=== PATIENT | female | born 1980 | race Caucasian/White ===

== ENCOUNTER 2024-09-03 14:19 | Emergency (ER) | payer MEDICAID, SELFPAY ==
[2024-09-03 14:29] VITALS: BP 137/83; PULSE 80; RESP 18; TEMP 36.9; O2SAT 97; BMI 30.5
[2024-09-03 14:52] LABS: Microscopic, Urine URINE MICROSCOPIC (MICROSCOPIC)
[2024-09-03 14:53] LABS: Basophils # 0.1 K/mm3 (0-0.2); Basophils % 0.6 % (0.1-2.0); Eosinophils # 0.2 K/mm3 (0.0-0.4); Eosinophils % 1.9 % (0.1-12.0); Hematocrit 39.8 % (37.0-47.0); Hemoglobin 13.2 g/dL (12.2-16.2); Lymphocytes # 1.6 K/mm3 (0.7-4.5); Lymphocytes % 17.9 % (10-50); Mean Corpuscular HGB Conc 33.2 g/dL (31.8-35.4); Mean Corpuscular Hemoglobin 29.3 pg (27.0-31.2); Mean Corpuscular Volume 88.4 fl (81-99); Mean Platelet Volume 12.8 fl (7.4-10.4); Monocytes # 0.6 K/mm3 (0.1-1.0); Monocytes % 6.1 % (1.7-9.3); Neutrophils # 6.6 K/mm3 (1.8-7.8); Neutrophils % 73.3 % (37.0-80.0); Platelet Count 198 K/mm3 (142-424); Red Cell Distribution Width 13.2 % (11.5-17.5)
[2024-09-03 14:56] LABS: Urine Pregnancy, HCG Qual. Negative (Negative)
[2024-09-03 14:59] LABS: Appearance,Urine CLEAR (Clear); Bilirubin,Urine Negative (Negative); Blood, Urine Negative (Negative); Color,Urine YELLOW (Yellow); Glucose,Urine (UA) Negative (Negative); Ketones,Urine Negative (Negative); Leukocyte Esterase,Urine Negative (Negative); Nitrate,Urine Negative (Negative); PH,Urine 6.5 (5.0-8.5); Protein,Urine Negative (Negative); Specific Gravity, Urine 1.025 (1.005-1.030); Urobilinogen,Urine 0.2 EU/dl (0.2)
[2024-09-03 15:15] LABS: Alanine Aminotransferase 25 U/L (12-78); Albumin Level 4.6 g/dl (3.5-5.0); Albumin/Globulin Ratio 1.5 (1.1-1.8); Alkaline Phosphatase 87 U/L (38-126); Anion Gap 12.2 mEq/L (5-15); Aspartate Amino Transferase 32 U/L (14-36); Bilirubin,Total 0.3 mg/dl (0.2-1.3); Blood Urea Nitrogen 21 mg/dl (7-17); Calcium 8.7 mg/dl (8.4-10.2); Carbon Dioxide 25 mmol/L (22.0-30.0); Chloride 107 mmol/L (98-107); Creatinine Clearance Estimated 87 mL/min (50-200); Estimated Glomerular Filt Rate 61 ml/min (>60); GFR (African American) 73 ML/MIN (>60); Glucose 98 mg/dl (74-100); Lipase 51 U/L (23-300); Potassium 4.2 mmoL/L (3.5-5.1); Sodium 140 mmol/L (136-145); Total Protein,Serum 7.6 g/dl (6.3-8.2)
[2024-09-03 15:37] LABS: Bacteria,Urine Trace /lpf; Mucus,Urine Trace /lpf; WBC,Urine Occasional #/hpf (0-3)
[2024-09-03 15:54] VITALS: BP 124/81; PULSE 78; RESP 16; O2SAT 100
--- NOTE | 2024-09-03 15:56 | PC.NURSE ---
Patient reassessed in triage. Continues to endorse abdominal pain to the LLQ. Patient denies any new or exacerbating symptoms since initial triage. Ambulates with smooth steady gait. Friend remains at side. Voices no questions or concerns at this time.
--- NOTE | 2024-09-03 16:36 | PC.NURSE ---
PT AMBULATORY TO ROOM 10 AT THIS TIME, CALL LIGHT WITHIN REACH. FAMILY AT BEDSIDE
--- NOTE | 2024-09-03 16:38 | PC.NURSE ---
DR ORTIZ AT BEDSIDE FOR EVALUATION
--- NOTE | 2024-09-03 16:41 | CT_ITS ---
PROCEDURE INFORMATION: Exam: CT Abdomen And Pelvis With Contrast Exam date and time: 09/03/2024 4:52 PM Age: 44 years old Clinical indication: Pain; Other: Llq; Additional info: Llq pain TECHNIQUE: Imaging protocol: Computed tomography of the abdomen and pelvis with contrast. Radiation optimization: All CT scans at this facility use at least one of these dose optimization techniques: automated exposure control; mA and/or kV adjustment per patient size (includes targeted exams where dose is matched to clinical indication); or iterative reconstruction. Contrast material: ISOVUE; Contrast volume: 75 ml; Contrast route: IV; COMPARISON: No relevant prior studies available. FINDINGS: Lungs: Lung bases are clear. Liver: Normal. No mass. Gallbladder and biliary ducts: Gallbladder contracted which limits assessment but otherwise unremarkable. No evident bile duct dilatation. Pancreas: Normal. No ductal dilation. Spleen: Normal. No splenomegaly. Adrenal glands: Normal. No mass. Kidneys and ureters: Subcentimeter low-density lesion in the anterior mid right kidney too small to characterize but likely a cyst. No follow-up advised. Kidneys and ureters otherwise unremarkable with no obstructing stones or uropathy. Stomach and bowel: Unremarkable. No obstruction. No mucosal thickening. Appendix: No evidence of appendicitis. Intraperitoneal space: Unremarkable. No free air. No significant fluid collection. Vasculature: Unremarkable. No abdominal aortic aneurysm. Lymph nodes: Unremarkable. No enlarged lymph nodes. Urinary bladder: Unremarkable as visualized. Reproductive: A 2 cm cyst noted in the left ovary likely physiologic. No follow-up advised. Bones/joints: Unremarkable. No acute fracture. Soft tissues: Unremarkable. IMPRESSION: No acute abnormalities of the abdomen and pelvis. Nonemergent findings as above. COMMENTS: Consistent with the [employer]'s Incidental Findings Committee white paper (J Am Johnny Radiol 2018): Any incidental renal lesion less than 1 cm or classified as too small to characterize, or any incidental cystic renal lesion characterized as simple-appearing, is likely benign. No follow-up imaging is recommended for these lesions per consensus recommendations based on imaging criteria.
--- NOTE | 2024-09-03 16:41 | US_ITS ---
PROCEDURE INFORMATION: Exam: US Duplex Artery or Vein of the Abdominal and/or Reproductive Organs, Limited Ovaries Exam date and time: 09/03/2024 4:59 PM Age: 44 years old Clinical indication: Pelvic pain; Additional info: Llq pain, R/O torsion TECHNIQUE: Imaging protocol: Real-time duplex ultrasound scan of the arterial or venous flow with jama scale, color Doppler flow and spectral waveform analysis with image documentation. Limited duplex exam focused on the ovaries. Duplex exam was performed to evaluate for torsion and other vascular conditions. COMPARISON: CT ABDOMEN PELVIS W CON 09/03/2024 4:52 PM FINDINGS: Right ovary/adnexa: Normal arterial or venous Doppler waveforms in the ovary. No ovarian torsion. Left ovary/adnexa: Normal arterial or venous Doppler waveforms in the ovary. No ovarian torsion. IMPRESSION: Normal ovarian arterial and venous vascular flow. No evidence ovarian torsion. PROCEDURE INFORMATION: Exam: US Pelvis, Transvaginal, Non-Obstetric Exam date and time: 09/03/2024 4:59 PM Age: 44 years old Clinical indication: Pelvic pain; Additional info: Llq pain, R/O torsion TECHNIQUE: Imaging protocol: Real-time transvaginal pelvic (non-obstetric) ultrasound with image documentation. Transvaginal imaging was used for better evaluation of the endometrium, adnexa, and/or cervix. COMPARISON: CT ABDOMEN PELVIS W CON 09/03/2024 4:52 PM FINDINGS: Uterus: Uterus is normal. Endometrial stripe is normal. Uterus measures 9.4 x 4.8 x 5.5 cm. Endometrial stripe measures 1.3 cm. Right ovary/adnexa: Normal. No mass. Normal ovarian blood flow on color Doppler. Right ovary measures 2.6 x 1.9 x 1.6 cm. Right ovary difficult to visualize. Left ovary/adnexa: Normal. No mass. Normal ovarian blood flow on color Doppler. Left ovary measures 3.2 x 2.2 x 2.2 cm and contains a 2 cm simple appearing cyst compatible with dominant follicle. Urinary bladder: Urinary bladder is limited. Intraperitoneal space: No free fluid. IMPRESSION: No acute findings.
--- NOTE | 2024-09-03 16:44 | HMH.EDGENADL ---
Discharge Plan Disposition Patient Disposition: Home, Self-Care Condition: Good Prescriptions Prescriptions: No Action No Known Home Medications Referrals Follow up/Referrals: Nevin Thompson DO [Staff Physician] - See instructions Rommel Wilson MD [Staff Physician] - See instructions Pat Amaya DO [Staff Physician] - See instructions Provider,MD Sonia [Primary Care Provider] - See instructions Activity Restrictions/Add. Instructions Additional Instructions/Restrictions: You were evaluated in the emergency department today. Please follow-up outpatient with gynecology. Take Tylenol and ibuprofen every 4-6 hours as needed for pain. Return to the emergency department for new or worsening symptoms. Clinical Impressions Clinical Impression: Cyst of left ovary Stand Alone Forms Stand Alone Forms: Work/School Release Instructions Patient Instructions: DI for Ovarian Cyst, DI for Acute Abdominal Pain Print Language Print Language: [place] Discharge ED Provider: Delmi Guthrie General Adult HPI General Chief complaint: Abdominal Pain Stated complaint: Lower abd Pain Time Seen by Provider: 09/03/24 16:37 Mode of Arrival: Ambulatory Source of Information: Patient Limitations: No Limitations Description of Symptoms (Recalled from ER Triage Doc. by RN): Patient presents with abdominal pain. Started last night. Patient pinpoints pain to left lower quadrant. States she has been consistently having bowel movements daily. States, I thought I was starting my period. I put a tampon in and then when I got home I changed it and there was nothing on it. Patient states she retains all female reproductive organs. Denies any gynecological history. Denies vomiting. Endorses intermittent nausea. Denies any urinary symptoms. Denies blood in urine and stool. History of Present Illness HPI narrative: This patient is a 44-year-old female who reports a history of pelvic pain issues related to a prior tubal, at which point she states that her tubes were left too long. She states that she started having pain last night in her left lower quadrant that is localized there with no radiation. She notes that she thought she was going to start her period, so she put in a tampon but it came out dry. She denies any fevers, nausea, vomiting, changes bowel movement such as diarrhea, constipation, melena, hematochezia. No urinary symptoms. She states nothing makes the pain better or worse. No other acute concerns noted at this time. Related Data Home Medications ?Medication ?Instructions ?Recorded ?Confirmed No Known Home Medications 09/03/24 09/03/24 Allergies Allergy/AdvReac Type Severity Reaction Status Date / Time gabapentin Allergy Intermediate Rash Verified 09/03/24 14:35 hydrocodone AdvReac Intermediate Vomiting Verified 09/03/24 14:35 PFSH [facility] Disclaimer: The information contained in this section may have been updated after the patient was seen, as this information can be updated by other users. Social History Smoking Status: Never smoker alcohol intake: never current occupational status: employed Travel in the last 8 weeks: None ROS Obtained: Yes All systems reviewed & no additional complaints except as documented Physical Exam General General appearance: alert and in no apparent distress Head Head exam: atraumatic and normocephalic Eye Eye exam: Present normal appearance, PERRL and EOMI ENT ENT exam: Present normal exam, normal oropharynx, mucous membranes moist and normal external ear exam Neck Neck exam: Present normal inspection, full ROM and trachea midline; Absent tenderness Chest Chest inspection: Present normal inspection and symmetric chest wall rise; Absent tenderness Respiratory Respiratory exam: Present normal lung sounds bilaterally; Absent respiratory distress, wheezes, stridor or accessory muscle use Cardiovascular Cardiovascular exam: Present regular rate and normal rhythm Abdominal Exam Abdominal exam: Present soft and tenderness (LLQ); Absent distention, guarding, rebound or rigidity Extremities Exam Extremities exam: Present normal inspection, full ROM and normal capillary refill; Absent tenderness or edema Back Exam Back exam: Present normal inspection and full ROM; Absent tenderness Neurological Exam Neurological exam: Present alert, oriented X3, CN II-XII intact and normal gait; Absent motor sensory deficit Psychiatric Psychiatric exam: Present normal affect and normal mood Skin Skin exam: Present warm and dry Medical Decision Making Medical Records Medical records reviewed: Yes I reviewed the patient's medical records. Screening: Per USPSTF and CDC recommendations, given the prevalence of disease in our region, it is our hospital?s policy to screen for HIV and viral Hepatitis for all patients aged 18 and over and those with ongoing risk factors. Elliot Inquiry Pt receiving controlled substance: No Vital Signs: 09/03/24 14:29 09/03/24 15:54 09/03/24 18:09 Temperature 98.5 F 98.5 F Temperature Source Oral Oral Pulse Rate 78 78 Pulse Rate [Radial] 80 Respiratory Rate 18 16 16 Blood Pressure 124/81 124/81 Blood Pressure [Right Arm] 137/83 Blood Pressure Mean [Right Arm] 101 Blood Pressure Source Automatic Cuff Blood Pressure Source [Right Arm] Automatic Cuff Blood Pressure Position Sitting Blood Pressure Position [Right Arm] Sitting 02 Sat by Pulse Oximetry 97 100 Oxygen Delivery Method Room Air Room Air Room Air Lab Data Lab results reviewed: Yes I reviewed the patient's lab results. Lab Results 09/03/24 14:45: WBC 9.0, RBC 4.50, Hgb 13.2, Hct 39.8, MCV 88.4, MCH 29.3, MCHC 33.2, RDW 13.2, Plt Count 198, MPV 12.8 H, Neut % (Auto) 73.3, Lymph % (Auto) 17.9, [place] % (Auto) 6.1, Eos % (Auto) 1.9, Baso % (Auto) 0.6, Neut # (Auto) 6.6, Lymph # (Auto) 1.6, [place] # (Auto) 0.6, Eos # (Auto) 0.2, Baso # (Auto) 0.1, Sodium 140, Potassium 4.2, Chloride 107, Carbon Dioxide 25, Anion Gap 12.2, BUN 21 H, Creatinine 1.00, Estimated Creat Clear 87, Estimated GFR 61, Est GFR ( Amer) 73, Glucose 98, Calcium 8.7, Total Bilirubin 0.3, AST 32, ALT 25, Alkaline Phosphatase 87, Total Protein 7.6, Albumin 4.6, Globulin 3.0, Albumin/Globulin Ratio 1.5, Lipase 51, Urine Color Yellow, Urine Appearance Clear, Urine pH 6.5, Ur Specific [place] 1.025, Urine Protein Negative, Urine Glucose (UA) Negative, Urine Ketones Negative, Urine Blood Negative, Urine Nitrate Negative, Urine Bilirubin Negative, Urine Urobilinogen 0.2, Ur Leukocyte Esterase Negative, Urine RBC None, Urine WBC Occasional, Ur Squamous Epith Cells 3-5, Urine Bacteria Trace, Urine Mucus Trace, Urine HCG, Qual Negative 09/03/24 14:45 09/03/24 14:45 Orders (Tests/Meds): ED MEDICATIONS Discontinued Medications Generic Name Dose Route Start Last Admin Trade Name Freq PRN Reason Stop Dose Admin Acetaminophen 1,000 mg 09/03/24 16:41 09/03/24 16:50 Acetaminophen 500mg Tab PO 09/03/24 16:42 1,000 mg ONCE ONE Administration Iopamidol 75 ml 09/03/24 16:57 09/03/24 16:58 Iopamidol-370 (76%);100ml Bottle IV 09/03/24 16:58 75 ml ONCE ONE Administration Ketorolac Tromethamine 15 mg 09/03/24 16:41 09/03/24 16:50 Ketorolac 30mg/Ml Vial IV 09/03/24 16:42 15 mg ONCE ONE Administration Morphine Sulfate 4 mg 09/03/24 16:41 09/03/24 17:17 Morphine 4mg/Ml Syringe IV 09/03/24 16:42 Not Given ONCE ONE Ondansetron HCl 4 mg 09/03/24 16:41 09/03/24 16:50 Ondansetron 4mg/2ml Vial IV 09/03/24 16:42 4 mg ONCE ONE Administration Sodium Chloride 10 ml 09/03/24 16:57 09/03/24 16:58 Sodium Chloride 0.9% 10ml Syr (Rad Only) IV 09/03/24 16:58 10 ml ONCE ONE Administration ORDERS Category Date Time Status CT abdomen pelvis w con Stat Cat Scan 09/03/24 16:41 Completed US transvaginal Stat Exams 09/03/24 16:41 Completed Complete Blood Count Auto Diff Stat Lab 09/03/24 14:45 Completed Comprehensive Metabolic Panel Stat Lab 09/03/24 14:45 Completed Lipase Stat Lab 09/03/24 14:45 Completed Urinalysis and Microscopic Stat Lab 09/03/24 14:45 Completed Urine , HCG Qual. Stat Lab 09/03/24 14:45 Completed Medical Decision Narrative: In summary, this patient is a 44-year-old female presenting to the Emergency Department for evaluation of left lower quadrant quadrant abdominal pain. Differential diagnoses considered include but are not limited to variances, ovarian torsion, colitis, diverticulitis, ureterolithiasis, cystitis, pyelonephritis. Ruling out the most morbid conditions drove assessment. On exam, the patient is lying in bed in no acute distress, but she does have left lower quadrant tenderness to palpation. No rebound or guarding. No changes in bowel movements or urinary symptoms. Vitals reassuring on cardiac telemetry. Workup included CBC, CMP, lipase, urinalysis, test, CT abdomen and pelvis with IV contrast, transvaginal ultrasound to look for ovarian cysts. Patient was given IV morphine, Zofran, Toradol, oral Tylenol for symptomatic improvement. I independently interpreted CT scan and ultrasound prior to the radiologist read and noted left-sided ovarian cyst without concerns for torsion, as the patient has good blood flow and states is only measuring around 2 cm. Please see their read for final interpretation. Labs were obtained that demonstrated reassuring CBC with no significant leukocytosis, reassuring chemistry, urine is not concerning for infection On reassessment, patient had good improvement after administration of interventions above. I feel that she has pain likely related to ovarian cyst, but no concerns for torsion based on exam and workup. Symptoms have significantly improved, so I feel she is appropriate discharge home with instructions for close follow-up with gynecology. Strict return precautions were given to the patient was discharged after all questions were answered Critical Care Critical Care Time Critical Care Time: No
[2024-09-03] MEDS: KETOROLAC 30MG/ML VIAL 15 MG IV (16:50)
[2024-09-03] MEDS: ONDANSETRON 4MG/2ML VIAL 4 MG IV (16:50)
[2024-09-03] MEDS: ACETAMINOPHEN 500MG TAB 1000 MG PO (16:50)
[2024-09-03] MEDS: SODIUM CHLORIDE 0.9% 10ML SYR (RAD ONLY) 10 ML IV (16:58)
[2024-09-03] MEDS: IOPAMIDOL-370 (76%);100ML BOTTLE 75 ML IV (16:58)
--- NOTE | 2024-09-03 17:08 | PC.NURSE ---
PT TO US
--- NOTE | 2024-09-03 17:29 | PC.NURSE ---
PT RETURNED TO ROOM FROM RADIOLOGY
[2024-09-03 18:09] VITALS: BP 124/81; PULSE 78; RESP 16; TEMP 36.9; O2SAT 100
== END 2024-09-03 18:10 | disposition home or self-care (01) ==
PROVIDERS: Emergency Provider Emergency Medicine
DX: N83.202 Unspecified ovarian cyst, left side (principal); R10.32 Left lower quadrant pain
CPT/HCPCS: 74177; 76830; 80053; 81001; 81025; 83690; 85025; 96374; 96375; 99285; J1885; J2270; J2405; Q9967

== ENCOUNTER 2024-11-27 10:47 | Outpatient (CLI) | payer MEDICAID, SELFPAY ==
[2024-11-27 12:01] LABS: Chol/HDL Ratio 3.6 (1-3.5); Cholesterol 214 mg/dl (140-200); HDL Cholesterol 60 mg/dl (40-60); Triglycerides 111 mg/dl (30-150); VLDL Cholesterol 22 mg/dL (0-40)
[2024-11-27 12:12] LABS: Direct LDL Cholesterol 111.91 mg/dL (100-129)
[2024-11-27 12:41] LABS: HIV Combo NEGATIVE (Negative)
[2024-11-27 12:50] LABS: Hepatitis C Ab Qual. W/ RFX NEGATIVE (Negative)
== END 2024-11-27 23:59 | disposition home or self-care (01) ==
LOC: LAB 10:48
PROVIDERS: PCP Internal Medicine; Visit Provider Internal Medicine
DX: Z11.4 Encounter for screening for human immunodeficiency virus [HIV] (principal); Z13.220 Encounter for screening for lipoid disorders; Z11.59 Encounter for screening for other viral diseases; Z13.1 Encounter for screening for diabetes mellitus
CPT/HCPCS: 36415; 80061; 83036; 86803; 87389

== ENCOUNTER 2025-01-11 11:27 | Outpatient (CLI) | payer MEDICAID, SELFPAY ==
--- OUTSIDE RECORDS SUMMARY | 2025-01-11 11:30 | XMS_ITS | Clinical Summary ---
Author Organization [employer] [facility] Address [address] [place] [id number] Phone Care Team Providers Care Master Machinist Name Role Phone Demetrio Donaldson MD Primary Care Physician [phone] Conditions or Problems Problem Name Problem Code Onset Date Status Entry Date Provider Comment Standard Description Annotate Hot flashes 899244870 (SNOMED CT) Active Anjum Blair MD Menopausal flushing Vitamin B12 deficiency 355830505 (SNOMED CT) Active Anjum Blair MD Cobalamin deficiency Body aches 98341826 (SNOMED CT) Active Anjum Blair MD Generalized aches and pains Fatigue 34655374 (SNOMED CT) Active Anjum Blair MD Fatigue Medications Medication Instructions Start Date Stop Date Generic Name [facility] Provider VITAMIN B-12 1000 MCG TABS TAKE 1 TABLET BY MOUTH ONCE A DAY 9 CYANOCOBALAMIN [id number] Anjum Blair MD Medications Administered No information available. Allergies, Adverse Reactions, Alerts Observed no known allergies at Results Date Name Value Unit Range Flag Description Lab Report: COMPREHENSIVE ME TABOLIC PANEL, CBC (INCLUDES DIFF/PLT), SKY ... TSH 2.34 u[iU]/m L N Thyrotropin [Units/volume] in Serum or Plasma B12 321 pg/mL 200-1100 N Cobalamin (V itamin B12) [Mass/volume] in Serum or Plasma HEP C AB NON-REACTIVE NON-REACTI N Hepa titis C virus Ab [Presence] in Serum RA FACTOR 6 [iU]/mL <14 N Rheumatoid factor [Units/volume] in Serum or Plasma SKY HOMO PAT NEGATIVE NEGATIVE N SKY (a ntinuclear antibody) pattern, homogeneous BASO % MANU 0.3 % N basophils as percent of blood leukocytes, manual count EOS % MANU 3.2 % N eosinophil s as percent of blood leukocytes, manual count MONOCYTE % 4.8 % N Monocytes/ 100 leukocytes in Blood by Automated count LYMPH% P BLD 21.2 % N lymphocy katarina as percent of blood leukocytes PMN % 70.5 % N Neutrophils/1 00 leukocytes in Blood by Automated count ABS BASOS 16 {Cells} /uL 0-200 N Basophils [#/volume] in Blood ABS EOS 170 {Cells} /uL 15-500 N Eosinophils [#/volume] in Blood ABS MONOS 254 {Cells} /uL 200-950 N Monocytes [#/volume] in Blood ABSLYMPHCT 1124 {Cells} /uL 850-3900 N Lymphocytes [#/volume] in Blood ABS NEUTROPH 3737 CELLS/UL 10*3/uL 6570-1754 N Neutrophils [#/volume] in Blood MPV 10.8 fL 7.5-11.5 N Platelet gabriele n volume [Entitic volume] in Blood by [place] PLATELETK/UL 153 THOUSAND/UL 10*3/uL 140-400 N platelet count RDW 14.4 % 11.0-15.0 N Erythrocyte distribution width [Ratio] by Automated count OL-MCHC 32.4 g/dL 32.0-36.0 N mean corpus cular hemoglobin concentration, rbc MCH 28.9 pg 27.0-33.0 N MCH [Entiti c mass] by Automated count MCV 89.1 fL 80.0-100.0 N MCV [Entit ic volume] by Automated count HCT 40.5 % 35.0-45.0 N Hematocrit [Volume Fraction] of Blood by Automated count HGB 13.1 g/dL 11.7-15.5 N Hemoglobin [Mass/volume] in Blood RBC M/UL 4.55 MILLION/UL 10*6/uL 3.80-5.10 N red blood count WBC CT BLOOD 5.3 10*3/uL 3.8-10.8 N leukocy te count, blood SGPT (ALT) 10 U/L 6-29 N Alanine aminotransferase [Enzymatic activity/volume] in Serum or Plasma SGOT (AST) 14 U/L 10-30 N Aspartate aminotransferase [Enzymatic activity/volume] in Serum or Plasma ALK PHOS 76 U/L 33-115 N Alkaline phosphatase [Enzymatic activity/volume] in Blood BILI TOTAL 0.4 mg/dL 0.2-1.2 N Bilirubin. total [Mass/volume] in Serum or Plasma A/G RATIO 1.5 (calc) 1.0-2.5 N Albumin/ Globulin [Mass Ratio] in Serum or Plasma GLOBULIN TOT 3.0 G/DL (CALC) g/dL 1.9-3.7 N Globulin [Mass/volume] in Serum ALBUMIN EOP 4.4 g/dL 3.6-5.1 N Albumin [Mass/volume] in Serum or Plasma by Electrophoresis PROTEIN, TOT 7.4 g/dL 6.1-8.1 N Protein [Mass/volume] in Serum or Plasma CALCIUM 9.0 mg/dL 8.6-10.2 N Calcium [Moles/volume] in Serum or Plasma CO2 27 mmol/L 19-30 N Carbon dioxid e, total [Moles/volume] in Venous blood CHLORIDE BLD 106 mmol/L 98-110 N chloride , blood POTASSIUM 3.8 mmol/L 3.5-5.3 N Potassium [Moles/volume] in Serum or Plasma SODIUM 141 mmol/L 135-146 N Sodium [Moles/volume] in Serum or Plasma BUN/CREAT NOT APPLICABLE (calc) 6-22 Urea nitrogen/Creatinine [Mass Ratio] in Serum or Plasma EGFR IF AFA 137 mL/min/ 1.73m2 >OR = 60 N Glomerular filtration rate/1.73 sq M.predicted among blacks [Volume Rate/Area] in Serum, Plasma or Blood by Creatinine-based formula (MDRD) EGFR 118 mL/min/ 1.73m2 >OR = 60 N Glomerular filtration rate/1.73 sq M.predicted [Volume Rate/Area] in Serum, Plasma or Blood by Creatinine-based formula (MDRD) CREATININE 0.61 mg/dL 0.50-1.10 N Creatini ne [Mass/volume] in Serum or Plasma BUN 16 mg/dL 7-25 N Urea nitrogen [Mass/volume] in Serum or Plasma GLUCOSE SER 77 mg/dL 65-99 N Glucose [Mass/volume] in Serum or Plasma Plan of Care Type Date Detail Pending order CMP Pending order TSH reflex to fr ee T4 Pending order B12 Pending order SKY Pending order Rheumatoid Facto r Quant Pending order CBC with diff Pending order Hep C Ab Procedures Code Procedure Name Date Entry Date [facility]-[id number] Medication Reconciliation [facility]-[id number] Medication Reconciliation 53093 [facility] # CMP 5 [id number] [facility] # TSH reflex to free T4 927 [facility] # B12 249 [facility] # SKY 4418 [facility] # Rheumatoid Factor Quant 6399 [facility] # CBC with diff 5 8472 [facility] # Hep C Ab Vital Signs Date Name Value Unit Description BMI (Body Mass Index) 24.05 kg/m2 Bod y Mass Index (Ratio) BP Diastolic 67 mm[Hg] blood pressu re, diastolic BP Systolic 102 mm[Hg] blood pressur e, systolic BSA (Body Surface Area) 1.61 b sukhdev surface area Heart Rate 73 /min pulse rate Weight Measured 59.55 kg weight in kilograms E&M Weight Measured 131 [lb_av] weight E& M Weight Measured 131 [lb_av] weight E& M Body Temperature 97.8 [degF] temperat ure E&M Body Temperature 36.56 [place] temperat ure in centigrade E&M Height 62 [in_us] height E&M Height 157.48 cm height in cent imeters E&M Immunizations No information available. Advance Directives Directive Description Start Date DISCUSSED - NO DECISION MADE
--- NOTE | 2025-01-11 11:52 | ECG_ITS ---
APPROVED REPORT Exam: Resting ECG HR:73 bpm ECG Measurements Heart Rate 73 AXES NH 150 P 64 QRSd 68 QRS 67 QT 384 T 37 QTc 410 Conclusion SINUS RHYTHM LOW QRS VOLTAGE IN PRECORDIAL LEADS [QRS DEFLECTION < 1.0 mV IN CHEST LEADS] NONSPECIFIC T-WAVE ABNORMALITY BORDERLINE ECG UNCONFIRMED REPORT Electronically signed by : Marlon Dias MD 01/12/2025 08:43:12
[2025-01-11 13:11] LABS: Thyroid Stimulating Hormone 1.09 uIU/mL (0.465-4.68)
[2025-01-11 13:30] LABS: Vitamin B12 309 pg/mL (239-931)
[2025-01-11 14:37] LABS: Folate 9.07 ng/mL
== END 2025-01-11 23:59 | disposition home or self-care (01) ==
LOC: LAB 11:29
PROVIDERS: PCP Internal Medicine; Visit Provider Specialist
DX: G62.9 Polyneuropathy, unspecified (principal); G60.0 Hereditary motor and sensory neuropathy; G47.30 Sleep apnea, unspecified; R94.31 Abnormal electrocardiogram [ECG] [EKG]; Z84.89 Family history of other specified conditions
CPT/HCPCS: 36415; 82607; 82746; 84443; 93005; 93225; 93227

== ENCOUNTER 2025-01-27 11:28 | Outpatient (CLI) | payer MEDICAID, SELFPAY ==
--- OUTSIDE RECORDS SUMMARY | 2025-01-27 11:29 | XMS_ITS | Clinical Summary ---
Author Organization [employer] [facility] Address [address] [place] [phone] Phone Care Team Providers Care Facilities Officer Name Role Phone Demetrio Donaldson MD Primary Care Physician [phone] Conditions or Problems Problem Name Problem Code Onset Date Status Entry Date Provider Comment Standard Description Annotate Hot flashes 907213300 (SNOMED CT) Active Anjum Blair MD Menopausal flushing Vitamin B12 deficiency 448283606 (SNOMED CT) Active Anjum Blair MD Cobalamin deficiency Body aches 11273311 (SNOMED CT) Active Anjum Blair MD Generalized aches and pains Fatigue 46197923 (SNOMED CT) Active Anjum Blair MD Fatigue Medications Medication Instructions Start Date Stop Date Generic Name [facility] Provider VITAMIN B-12 1000 MCG TABS TAKE 1 TABLET BY MOUTH ONCE A DAY 9 CYANOCOBALAMIN [id number] Anjum Blair MD Medications Administered No information [...] in Blood ABS NEUTROPH 3737 CELLS/UL 10*3/uL 9377-7937 N Neutrophils [#/volume] in Blood MPV 10.8 [...] Procedures Code Procedure Name Date Entry Date [facility]-[id number] Medication Reconciliation [facility]-[id number] Medication Reconciliation 99270 [facility] # CMP 5 [id number] [facility] # TSH reflex to free [...]
== END 2025-01-27 23:59 | disposition home or self-care (01) ==
LOC: RT 11:28
PROVIDERS: PCP Internal Medicine; Visit Provider Internal Medicine
DX: I49.1 Atrial premature depolarization (principal); I47.19 Other supraventricular tachycardia; I49.3 Ventricular premature depolarization; R94.31 Abnormal electrocardiogram [ECG] [EKG]
CPT/HCPCS: 93270

== ENCOUNTER 2025-02-11 09:52 | Outpatient (CLI) | payer MEDICAID, SELFPAY ==
--- OUTSIDE RECORDS SUMMARY | 2025-02-11 09:53 | XMS_ITS | Clinical Summary ---
Author Organization [employer] [facility] Address [address] [place] [phone] Phone Care Team Providers Care Associate Medical Director Name Role Phone Demetrio Donaldson MD Primary Care Physician [phone] Conditions or Problems Problem Name Problem Code Onset Date Status Entry Date Provider Comment Standard Description Annotate Hot flashes 844626191 (SNOMED CT) Active Anjum Blair MD Menopausal flushing Vitamin B12 deficiency 621856505 (SNOMED CT) Active Anjum Blair MD Cobalamin deficiency Body aches 38776273 (SNOMED CT) Active Anjum Blair MD Generalized aches and pains Fatigue 70358436 (SNOMED CT) Active Anjum Blair MD Fatigue Medications Medication Instructions Start Date Stop Date Generic Name [facility] Provider VITAMIN B-12 1000 MCG TABS TAKE 1 TABLET BY MOUTH ONCE A DAY 9 CYANOCOBALAMIN [id number] Anjum Blair MD Medications Administered No information [...] in Blood ABS NEUTROPH 3737 CELLS/UL 10*3/uL 7177-4084 N Neutrophils [#/volume] in Blood MPV 10.8 [...] Procedures Code Procedure Name Date Entry Date [facility]-[id number] Medication Reconciliation [facility]-[id number] Medication Reconciliation 66480 [facility] # CMP 5 [id number] [facility] # TSH reflex to free [...]
--- NOTE | 2025-02-11 10:15 | CA_ITS ---
APPROVED REPORT EXAM: Comprehensive 2D, Doppler, and color-flow Echocardiogram Facilities Mechanical Design Engineer: Krissy Hilton CRT Ht: 5 ft 2 in Wt: 167lbs BSA: 1.77 BP: 153/88 mmHg Indications: Abnormal ECG, Palpitations 2D Dimensions LA Volume 8.70 mL LA Volume Index 4.80 mL/m2 (M/F) 16-34 M-Mode Dimensions RVDd 2.03 cm (0.9-2.6) LA Diam 1.93 cm (1.9-4.0) LVDd 3.67 cm (3.5-5.7) LVDs 2.71 cm (3.5-5.7) IVSd 1.13 cm (0.6-1.1) PWd 0.87 cm (0.6-1.1) EF (Teich) 52.10% FS 26.20% EDV (Teich) 57.00 mL TAPSE 1.49 (<1.7) ESV (Teich) 27.30 mL LV Diastology E Decel Time 113 (160-240 msec) E/A Ratio 0.96 MED A' 11.20 cm/s LAT A' 11.80 cm/s Aortic Valve AO Peak GR. 6.80 mmHg Mitral Valve MV E Max Hiren. 51.0 (40-130 cm/s) MV A Velocity 54.0 (40-130 cm/s) E/A Ratio 0.96 MV PHT 33.0 ms Pulmonary Valve PV Peak Velocity 59.0 (50-150 cm/s) Tricuspid Valve TR P. Velocity 231.00 cm/s RAP Estimate 10.00 mmHg RVSP 31.40 mmHg Left Ventricle The left ventricle is normal size. The left ventricular systolic function is normal. The left ventricular ejection fraction is within the normal range. There is normal left ventricular wall thickness. There is normal LV segmental wall motion. The left ventricular diastolic function is normal. LVEF is 55%. Right Ventricle The right ventricle is normal size. The right ventricular systolic function is normal. Atria The left atrium size is normal. The right atrium size is normal. There is no Doppler evidence of interatrial shunt. Aortic Valve The aortic valve opens well. There is no aortic valvular stenosis. No aortic regurgitation is present. Mitral Valve The mitral valve is normal in structure. No evidence of mitral valve stenosis. There is no mitral valve regurgitation noted. Tricuspid Valve Tricuspid valve is grossly normal in structure and function. Trace tricuspid regurgitation. There is insufficient TR jet to estimate RVSP. Pulmonic Valve The pulmonary valve is normal in structure. Trace pulmonic regurgitation. Great Vessels The aortic root is normal in size. IVC is normal in size and collapses >50% with inspiration. Pericardium There is no pericardial effusion. Other Information Study Quality: Fair Conclusion Normal biventricular systolic function. No significant valvular stenosis or regurgitation. Electronically signed by : Lilly Mendez MD 02/16/2025 13:15:53
== END 2025-02-11 23:59 | disposition home or self-care (01) ==
LOC: RT 09:52
PROVIDERS: PCP Internal Medicine; Visit Provider Specialist
DX: G60.0 Hereditary motor and sensory neuropathy (principal); R06.02 Shortness of breath; R00.2 Palpitations; R94.31 Abnormal electrocardiogram [ECG] [EKG]
CPT/HCPCS: 93306

== ENCOUNTER 2025-03-02 06:37 | Outpatient (CLI) | payer MEDICAID, SELFPAY ==
--- NOTE | 2025-03-02 | CA_ITS ---
APPROVED REPORT Exam: Pharmacologic Technologist: Christel Roldan Ht: 5 ft 2 in Wt: 169 lbs BSA: 1.78 m2 HR: 70 bpm BP: 115/79 mmHg Stress Test Details Test: Lexiscan HR Resting HR: 70 bpm Max Heart Rate (APMHR): 177.056963 bpm Max HR Achieved: 94 bpm Target HR (85% APMHR): 150.901447 bpm % of APMHR: 53.11 Recovery HR: 75 bpm BP Resting BP: 115.0/79.0 mmHg Max BP: 131.0/75.0 mmHg Recovery BP: 113.0/73.0 mmHg ECG Stress ECG Conclusion Symptoms: Shortness of air, chest pressure Arrhythmias/Ectopy: None ST-T Changes: EKG non-diagnostic Lexiscan Electronically signed by : Lilly Mendez MD 03/02/2025 11:43:28
--- NOTE | 2025-03-02 06:30 | NM_ITS ---
APPROVED REPORT Exam: Nuclear Stress Test Indication: Chest pain, SOB, Family history Patient Location: Outpatient Stress Tech: Christel Roldan NM Tech:Jazmín Tomas, ARRT, RT (R)(N) Ht: 5 ft 3 in Wt: 170 lbs Bra Size: 32C HR: 71 bpm BP: 115/79 mmHg BSA: 1.80 m2 TID: 1.41 BMI: 30.1 History: Chest pain, SOB, Family history Procedure: Patient received 0.4 mg of intravenous Lexiscan, resting heart rate 71 bpm, resting blood pressure 115/79 mmHg, with Lexiscan maximum heart rate achieved was 103 bpm which is % of the maximum predicted heart rate and blood pressure was 131/75 mmHg. With Lexiscan, patient denied any complaint of chest pain. Cardiac Stress and Resting SPECT Images: Cardiac Stress and Resting SPECT images were obtained using technetium 99m Myoview 30.4 mCi stress and 10.05 mCi at rest. Resting and stress imaging in supine and prone positions demonstrate no evidence of fixed or reversible perfusion. There is increase in transient ischemic dilatation ratio (TID 1.41), which may be suggestive of multivessel disease or balanced ischemia. Gated imaging demonstrates normal global and regional LV systolic function. LVEF is calculated at 69%. Conclusion: No evidence of fixed or reversible perfusion. There is increase in transient ischemic dilatation ratio (TID 1.41), which may be suggestive of multivessel disease or balanced ischemia. Gated imaging demonstrates normal global and regional LV systolic function. LVEF is calculated at 69%. In the setting of young age, normal LV systolic function, and TID on nuclear stress testing, further evaluation noninvasively with CCTA to rule out multivessel disease may be suggested prior to proceeding with invasive coronary angiography, if clinically indicated and feasible. Electronically signed by : Lilly Mendez MD 03/02/2025 11:43:10
--- OUTSIDE RECORDS SUMMARY | 2025-03-02 06:38 | XMS_ITS | Clinical Summary ---
Author Organization [employer] [facility] Address [address] [place] [id number] Phone Care Team Providers Care Corner Cutter Name Role Phone Demetrio Donaldson MD Primary Care Physician [phone] Conditions or Problems Problem Name Problem Code Onset Date Status Entry Date Provider Comment Standard Description Annotate Hot flashes 395657465 (SNOMED CT) Active Anjum Blair MD Menopausal flushing Vitamin B12 deficiency 477312688 (SNOMED CT) Active Anjum Blair MD Cobalamin deficiency Body aches 99779081 (SNOMED CT) Active Anjum Blair MD Generalized aches and pains Fatigue 25976884 (SNOMED CT) Active Anjum Blair MD Fatigue Medications Medication Instructions Start Date Stop Date Generic Name [facility] Provider VITAMIN B-12 1000 MCG TABS TAKE 1 TABLET BY MOUTH ONCE A DAY 9 CYANOCOBALAMIN [id number] Anjum Blair MD Medications Administered No information [...] in Blood ABS NEUTROPH 3737 CELLS/UL 10*3/uL 1720-4140 N Neutrophils [#/volume] in Blood MPV 10.8 [...] Procedures Code Procedure Name Date Entry Date [facility]-[id number] Medication Reconciliation [facility]-[id number] Medication Reconciliation 66474 [facility] # CMP 5 [id number] [facility] Test # TSH reflex to free [...]
[2025-03-02] MEDS: ISOTOPE MYOVIEW (PER STUDY) 1 DOSE IV (08:30)
[2025-03-02] MEDS: SODIUM CHLORIDE 0.9% 10ML SYR (RAD ONLY) 10 ML IV ×2 (08:30)
== END 2025-03-02 23:59 | disposition home or self-care (01) ==
LOC: RAD 06:38
PROVIDERS: PCP Internal Medicine; Visit Provider Nurse Practitioner Family
DX: R94.39 Abnormal result of other cardiovascular function study (principal); R07.9 Chest pain, unspecified; R06.02 Shortness of breath; R94.31 Abnormal electrocardiogram [ECG] [EKG]
CPT/HCPCS: 78452; 93016; 93017; 93018; A9502; J2785

== ENCOUNTER → 2025-03-07 06:35 | Outpatient (CLI) | payer MEDICAID, SELFPAY ==
--- OUTSIDE RECORDS SUMMARY | 2025-03-07 06:36 | XMS_ITS | Clinical Summary ---
Author Organization [facility] Address [address] [place] [id number] Phone Care Team Providers Care License Registration Examiner Name Role Phone Demetrio Donaldson MD Primary Care Physician Conditions or Problems Problem Name Problem Code Onset Date Status Entry Date Provider Comment Standard Description Annotate Hot flashes 078790901 (SNOMED CT) Active Anjum Blair MD Menopausal flushing Vitamin B12 deficiency 760737566 (SNOMED CT) Active Anjum Blair MD Cobalamin deficiency Body aches 94354298 (SNOMED CT) Active Anjum Blair MD Generalized aches and pains Fatigue 36590027 (SNOMED CT) Active Anjum Blair MD Fatigue Medications Medication Instructions Start Date Stop Date Generic Name [facility] Provider VITAMIN B-12 1000 MCG TABS TAKE 1 TABLET BY MOUTH ONCE A DAY 9 CYANOCOBALAMIN [id number] Anjum Blair MD Medications Administered No information [...] in Blood ABS NEUTROPH 3737 CELLS/UL 10*3/uL 6177-1794 N Neutrophils [#/volume] in Blood MPV 10.8 [...] Procedures Code Procedure Name Date Entry Date [facility]-[id number] Medication Reconciliation [facility]-[id number] Medication Reconciliation 81019 [facility] Test # CMP 5 [id number] [facility] Test # TSH reflex to free [...]
== END ==
LOC: SL 06:36
PROVIDERS: PCP Specialist; Visit Provider Specialist
DX: G47.30 Sleep apnea, unspecified (principal); G60.0 Hereditary motor and sensory neuropathy; G62.9 Polyneuropathy, unspecified; G47.36 Sleep related hypoventilation in conditions classified elsewhere
CPT/HCPCS: G0399

== ENCOUNTER 2025-03-08 06:19 | Emergency (ER) | payer MEDICAID, SELFPAY ==
[2025-03-08] VITALS (11 sets, daily range): BP systolic 101–161; BP diastolic 68–95; PULSE 61–80; RESP 12–20; TEMP 36.8; O2SAT 95–100; BMI 31.1
--- NOTE | 2025-03-08 06:21 | ECG_ITS ---
APPROVED REPORT Exam: Resting ECG HR:78 bpm ECG Measurements Heart Rate 78 AXES TX 156 P 72 QRSd 78 QRS 59 QT 376 T 51 QTc 409 Conclusion SINUS RHYTHM LOW QRS VOLTAGE IN PRECORDIAL LEADS [QRS DEFLECTION < 1.0 mV IN CHEST LEADS] NONSPECIFIC T-WAVE ABNORMALITY No STEMI Electronically signed by : LIZ SPARKS, 03/10/2025 06:42:55
--- NOTE | 2025-03-08 06:24 | XR_ITS ---
FINAL REPORT CLINICAL HISTORY: chest pain radiating to back COMPARISON: None FINDINGS: The heart size is normal. The mediastinum is normal. There is no focal infiltrate or edema. There are no pleural effusions. There is no pneumothorax. There is no osseous abnormality. IMPRESSION: No acute cardiopulmonary process Reviewed, Interpreted and Dictated by Galdino Link MD Transcribed by Rosalia Nieto Authenticated and [facility]
--- NOTE | 2025-03-08 06:25 | HMH.EDGENADL ---
Discharge Plan Disposition Patient Disposition: Home, Self-Care Prescriptions Prescriptions: No Action No Known Home Medications Activity Restrictions/Add. Instructions Additional Instructions/Restrictions: Follow-up with Dr. Thompson tomorrow in the cardiology team as scheduled. If you develop any new or worsening symptoms, or if you become concerned with your health for any reason, return to the emergency department for evaluation. Clinical Impressions Clinical Impression: Chest pain Print Language Print Language: Danish Discharge ED Provider: Ray Dailey General Adult HPI <Ray Dailey MD - Last Filed: 03/08/25 06:55> General Chief complaint: Chest Pain Stated complaint: chest pain Time Seen by Provider: 03/08/25 06:25 History of Present Illness HPI narrative: 44-year-old female with history of Insirva-Peehb-Uhqxg presents for chest pain. She reports has been ongoing for the last few weeks. She saw cardiology and is in the process of being evaluated for it. She reports that she had some chest tightness when she went to bed that scared her so she stated little later. This morning when she woke up it was severe, such that she could not move or walk. She reports shortness of breath associated with the pain. She reports that the pain is usually worse with palpation, better with getting up and moving. Related Data Home Medications ?Medication ?Instructions ?Recorded ?Confirmed No Known Home Medications 02/16/25 02/16/25 Allergies Allergy/AdvReac Type Severity Reaction Status Date / Time gabapentin Allergy Intermediate Rash Verified 02/16/25 13:02 hydrocodone AdvReac Intermediate Vomiting Verified 02/16/25 13:02 vancomycin AdvReac Verified 02/16/25 13:02 PFSH <Ray Dailey MD - Last Filed: 03/08/25 06:55> [facility] Disclaimer: The information contained in this section may have been updated after the patient was seen, as this information can be updated by other users. Medical History (Updated 03/08/25 @ 06:47 by Ray Dailey MD) Chest pain Family history of ischemic heart disease before age 50 Abnormal Holter exam Abnormal electrocardiogram [ECG] [EKG] Shortness of breath Sleep-disordered breathing Snoring Neuropathy Family history of Ddcbjuq-Wxlgy-Ewawu disease Asthma Surgical History History of colposcopy Hx of tubal ligation Family History Other Edmlqgk-Rcrfg-Qkgro disease Coronary artery disease Heart attack Social History Smoking Status: Never smoker alcohol intake: never substance use type: denies use current occupational status: unemployed and disabled Travel in the last 8 weeks?: None marital status: Have you lived/traveled outside [place] in past 30 days?: No Contact w/someone who lives/traveled outside US past 30 days?: No Exposure to someone with infectious disease in past 14 days?: No Do you have a fever (greater than 100.4 F or 38 C)?: No Have you tested positive for COVID-19?: No Exposed to someone with COVID-19 in past 14 days?: No Do you have a sore throat?: No Do you have a cough?: No Do you have any weakness?: No Do you have any diarrhea?: No Are you experiencing any unusual bleeding?: No Do you have any muscle aches/pain?: No Do you have any abdominal pain?: No Are you experiencing loss of taste or smell?: No Other Medical History Have you received the Pneumonia Vaccine: No <Ray Dailey MD - Last Filed: 03/08/25 06:55> ROS Obtained: Yes All systems reviewed & no additional complaints except as documented Physical Exam <Ray Dailey MD - Last Filed: 03/08/25 06:55> General General appearance: alert and anxious Head Head exam: atraumatic and normocephalic Eye Eye exam: Present normal appearance, PERRL and EOMI ENT ENT exam: Present normal oropharynx and normal external ear exam Neck Neck exam: Present normal inspection and full ROM Chest Chest inspection: Present normal inspection, symmetric chest wall rise and tenderness Respiratory Respiratory exam: Present normal lung sounds bilaterally; Absent respiratory distress Cardiovascular Cardiovascular exam: Present regular rate and normal rhythm Abdominal Exam Abdominal exam: Present soft; Absent distention, tenderness or guarding Extremities Exam Extremities exam: Present normal inspection; Absent edema or joint swelling Back Exam Back exam: Present normal inspection; Absent tenderness Neurological Exam Neurological exam: Present alert and oriented X3; Absent motor sensory deficit Psychiatric Psychiatric exam: Present normal affect and normal mood Skin Skin exam: Present warm, dry and normal color Lymphatic Lymphatic Findings: no adenopathy Medical Decision Making <Ray Dailey MD - Last Filed: 03/08/25 06:55> Medical Records Medical records reviewed: Yes I reviewed the patient's medical records. Screening: Per USPSTF and CDC recommendations, given the prevalence of disease in our region, it is our hospital?s policy to screen for HIV and viral Hepatitis for all patients aged 18 and over and those with ongoing risk factors. Elliot Inquiry Pt receiving controlled substance: No Elliot was queried for this patient: No Vital Signs: 03/08/25 06:24 03/08/25 06:27 03/08/25 06:28 Temperature 98.2 F Temperature Source Oral Pulse Rate 64 79 Pulse Rate [Left Radial] 79 Respiratory Rate 19 12 Blood Pressure Blood Pressure [right arm] 161/95 H Blood Pressure Mean Blood Pressure Mean [right arm] 117 02 Sat by Pulse Oximetry 100 98 Oxygen Delivery Method Room Air 03/08/25 06:30 03/08/25 06:30 03/08/25 06:45 Temperature Temperature Source Pulse Rate 67 67 Pulse Rate [Left Radial] Respiratory Rate 12 18 Blood Pressure 133/85 Blood Pressure [right arm] Blood Pressure Mean 101 Blood Pressure Mean [right arm] 02 Sat by Pulse Oximetry 99 100 Oxygen Delivery Method 03/08/25 07:01 03/08/25 07:30 03/08/25 08:00 Temperature Temperature Source Pulse Rate 61 66 67 Pulse Rate [Left Radial] Respiratory Rate 16 13 15 Blood Pressure 109/68 L 105/71 L 101/69 L Blood Pressure [right arm] Blood Pressure Mean Blood Pressure Mean [right arm] 02 Sat by Pulse Oximetry 99 95 98 Oxygen Delivery Method 03/08/25 08:30 03/08/25 09:00 03/08/25 10:19 Temperature 98.2 F Temperature Source Pulse Rate 64 64 80 Pulse Rate [Left Radial] Respiratory Rate 14 14 20 Blood Pressure 111/71 111/74 116/78 Blood Pressure [right arm] Blood Pressure Mean Blood Pressure Mean [right arm] 02 Sat by Pulse Oximetry 98 98 Oxygen Delivery Method Room Air Lab Data Lab results reviewed: Yes I reviewed the patient's lab results. Lab Results 03/08/25 06:24: WBC 6.1, RBC 4.57, Hgb 13.3, Hct 40.8, MCV 89.3, MCH 29.1, MCHC 32.6, RDW 13.0, Plt Count 187, MPV 12.8 H, Neut % (Auto) 55.8, Lymph % (Auto) 34.3, [place] % (Auto) 6.4, Eos % (Auto) 2.8, Baso % (Auto) 0.5, Neut # (Auto) 3.4, Lymph # (Auto) 2.1, [place] # (Auto) 0.4, Eos # (Auto) 0.2, Baso # (Auto) 0.0, D-Dimer 0.66 H, Sodium 140, Potassium 4.4, Chloride 109 H, Carbon Dioxide 25, Anion Gap 10.4, BUN 16, Creatinine 0.50 L, Estimated Creat Clear 177, Estimated GFR 135, Est GFR ( Amer) 163, Glucose 108 H, Calcium 8.9, Total Bilirubin 0.1 L, AST 28, ALT 22, Alkaline Phosphatase 100, Troponin I < 0.01, Total Protein 7.7, Albumin 3.5, Globulin 4.2 H, Albumin/Globulin Ratio 0.8 L, Serum HCG, Qual Negative 03/08/25 09:05: Troponin I < 0.01 03/08/25 06:24 03/08/25 06:24 Orders (Tests/Meds): ED MEDICATIONS Discontinued Medications Generic Name Dose Route Start Last Admin Trade Name Freq PRN Reason Stop Dose Admin Acetaminophen 1,000 mg 03/08/25 06:23 03/08/25 06:31 Acetaminophen 500mg Tab PO 03/08/25 06:24 1,000 mg ONCE ONE Administration Aspirin 324 mg 03/08/25 06:23 03/08/25 06:31 Aspirin 81mg Chewable Tablet PO 03/08/25 06:24 324 mg ONCE ONE Administration Belladonna Alkaloids 60 ml 03/08/25 06:23 03/08/25 06:31 Belladonna Alkaloids 60 Ml Ml PO 03/08/25 06:24 60 ml ONCE ONE Administration ORDERS Category Date Time Status CXR --portable [XR chest portable] Stat Exams 03/08/25 06:24 Completed CBC w/Auto Diff [Complete Blood Count Auto Diff] Stat Lab 03/08/25 06:24 Completed CMP [Comprehensive Metabolic Panel] Stat Lab 03/08/25 06:24 Completed D-Dimer Stat Lab 03/08/25 06:24 Completed HCG Qualitative, Serum Stat Lab 03/08/25 06:24 Completed Troponin I Q3H Lab 03/08/25 06:24 Completed Troponin I Q3H Lab 03/08/25 09:05 Completed ECG Data Tracing #1: I reviewed this ECG and interpreted as documented below: Sinus rhythm, ventricular rate of 78, no significant ST changes, no evidence of arrhythmia ECG initial impression date: 03/08/25 ECG initial impression time: 06:21 HEART Score History (anamnesis): Slightly suspicious ECG: Non-specific disturbance Age: <45 years Risk factors: No known risk factors Troponin: </= normal limit HEART Score: 1 Medical Decision Narrative: 44-year-old female with history of Wwpiqjl-Biyyn-Xpdjc presents for several weeks of chest pain, acutely worsened this morning.. History was obtained via interactive discussion with patient chart review. On arrival, patient is [afebrile, hemodynamically stable, satting appropriately, alert, oriented x4, GCS 15], moving all extremities spontaneously. Full physical exam performed and significant for mild chest wall tenderness Differential includes but is not limited to musculoskeletal chest pain, ACS, PE, esophageal pathology, reflux, earlier pathology. Patient was given aspirin, Tylenol, GI cocktail for symptomatic management and correction of underlying abnormalities. Workup initiated including CBC CMP troponin D-dimer chest x-ray EKG. Laboratory workup independently interpreted by me and significant for no significant electrolyte derangements, normal renal function, no significant leukocytosis.. Imaging independently interpreted by me and significant for clear lungs bilaterally without focal opacity.. See radiology read for full review of final results. At this time care handed off to oncoming physician pending continued workup. <Manjeet Dawkins MD - Last Filed: 03/08/25 13:22> Vital Signs: 03/08/25 06:24 03/08/25 06:27 03/08/25 06:28 Temperature 98.2 F Temperature Source Oral Pulse Rate 64 79 Pulse Rate [Left Radial] 79 Respiratory Rate 19 12 Blood Pressure Blood Pressure [right arm] 161/95 H Blood Pressure Mean Blood Pressure Mean [right arm] 117 02 Sat by Pulse Oximetry 100 98 Oxygen Delivery Method Room Air 03/08/25 06:30 03/08/25 06:30 03/08/25 06:45 Temperature Temperature Source Pulse Rate 67 67 Pulse Rate [Left Radial] Respiratory Rate 12 18 Blood Pressure 133/85 Blood Pressure [right arm] Blood Pressure Mean 101 Blood Pressure Mean [right arm] 02 Sat by Pulse Oximetry 99 100 Oxygen Delivery Method 03/08/25 07:01 03/08/25 07:30 03/08/25 08:00 Temperature Temperature Source Pulse Rate 61 66 67 Pulse Rate [Left Radial] Respiratory Rate 16 13 15 Blood Pressure 109/68 L 105/71 L 101/69 L Blood Pressure [right arm] Blood Pressure Mean Blood Pressure Mean [right arm] 02 Sat by Pulse Oximetry 99 95 98 Oxygen Delivery Method 03/08/25 08:30 03/08/25 09:00 03/08/25 10:19 Temperature 98.2 F Temperature Source Pulse Rate 64 64 80 Pulse Rate [Left Radial] Respiratory Rate 14 14 20 Blood Pressure 111/71 111/74 116/78 Blood Pressure [right arm] Blood Pressure Mean Blood Pressure Mean [right arm] 02 Sat by Pulse Oximetry 98 98 Oxygen Delivery Method Room Air Lab Data Lab Results 03/08/25 06:24: WBC 6.1, RBC 4.57, Hgb 13.3, Hct 40.8, MCV 89.3, MCH 29.1, MCHC 32.6, RDW 13.0, Plt Count 187, MPV 12.8 H, Neut % (Auto) 55.8, Lymph % (Auto) 34.3, [place] % (Auto) 6.4, Eos % (Auto) 2.8, Baso % (Auto) 0.5, Neut # (Auto) 3.4, Lymph # (Auto) 2.1, [place] # (Auto) 0.4, Eos # (Auto) 0.2, Baso # (Auto) 0.0, D-Dimer 0.66 H, Sodium 140, Potassium 4.4, Chloride 109 H, Carbon Dioxide 25, Anion Gap 10.4, BUN 16, Creatinine 0.50 L, Estimated Creat Clear 177, Estimated GFR 135, Est GFR ( Amer) 163, Glucose 108 H, Calcium 8.9, Total Bilirubin 0.1 L, AST 28, ALT 22, Alkaline Phosphatase 100, Troponin I < 0.01, Total Protein 7.7, Albumin 3.5, Globulin 4.2 H, Albumin/Globulin Ratio 0.8 L, Serum HCG, Qual Negative 03/08/25 09:05: Troponin I < 0.01 Orders (Tests/Meds): ED MEDICATIONS Discontinued Medications Generic Name Dose Route Start Last Admin Trade Name Christiano PRN Reason Stop Dose Admin Acetaminophen 1,000 mg 03/08/25 06:23 03/08/25 06:31 Acetaminophen 500mg Tab PO 03/08/25 06:24 1,000 mg ONCE ONE Administration Aspirin 324 mg 03/08/25 06:23 03/08/25 06:31 Aspirin 81mg Chewable Tablet PO 03/08/25 06:24 324 mg ONCE ONE Administration Belladonna Alkaloids 60 ml 03/08/25 06:23 03/08/25 06:31 Belladonna Alkaloids 60 Ml Ml PO 03/08/25 06:24 60 ml ONCE ONE Administration ORDERS Category Date Time Status CXR --portable [XR chest portable] Stat Exams 03/08/25 06:24 Completed CBC w/Auto Diff [Complete Blood Count Auto Diff] Stat Lab 03/08/25 06:24 Completed CMP [Comprehensive Metabolic Panel] Stat Lab 03/08/25 06:24 Completed D-Dimer Stat Lab 03/08/25 06:24 Completed HCG Qualitative, Serum Stat Lab 03/08/25 06:24 Completed Troponin I Q3H Lab 03/08/25 06:24 Completed Troponin I Q3H Lab 03/08/25 09:05 Completed HEART Score HEART Score: 1 Medical Decision Narrative: 44-year-old female with history of Dapqhez-Acmwe-Ufjme presents for several weeks of chest pain, acutely worsened this morning.. History was obtained via interactive discussion with patient chart review. On arrival, patient is [afebrile, hemodynamically stable, satting appropriately, alert, oriented x4, GCS 15], moving all extremities spontaneously. Full physical exam performed and significant for mild chest wall tenderness Differential includes but is not limited to musculoskeletal chest pain, ACS, PE, esophageal pathology, reflux, earlier pathology. Patient was given aspirin, Tylenol, GI cocktail for symptomatic management and correction of underlying abnormalities. Workup initiated including CBC CMP troponin D-dimer chest x-ray EKG. Laboratory workup independently interpreted by me and significant for no significant electrolyte derangements, normal renal function, no significant leukocytosis.. Imaging independently interpreted by me and significant for clear lungs bilaterally without focal opacity.. See radiology read for full review of final results. At this time care handed off to oncoming physician pending continued workup. Manjeet Dawkins MD At the time my assumption of care, plan was to follow-up repeat troponin and D-dimer. Ultimately, patient's workup showed mildly elevated D-dimer of 0.66, however, no indication for additional imaging based on YEARS criteria. Patient was placed into ED observation at 0730 pending repeat troponin. Patient was continually monitored with cardiac monitoring and reassessments during this period. Repeat troponin also negative. Remainder patient's lab work was interpreted by me personally without evidence of acute abnormality. EKG without evidence of ischemia. Given this, is felt the patient is appropriate for discharge at this time. Will have patient follow-up with the cardiology team and her primary care physician. Return precautions were given. All questions were answered. She demonstrated understanding and was in agreement this plan. She was then discharged to the emergency department in stable condition. I was consulted by the AURELIO, and we discussed the complexity of the problems being addressed. I approve the treatment and management plan for this patient's care in the emergency department, thus performing a substantive portion of the medical decision making. Manjeet Dawkins MD Procedures <Ray Dailey MD - Last Filed: 03/08/25 06:55> Risk/Benefits of Procedure(s) Were Explained: Yes Critical Care <Ray Dailey MD - Last Filed: 03/08/25 06:55> Critical Care Time Critical Care Time: No
--- OUTSIDE RECORDS SUMMARY | 2025-03-08 06:29 | XMS_ITS | Clinical Summary ---
Author Organization [facility] Address [address] [place] [id number] Phone Care Team Providers Care Enrobing Machine Corder Name Role Phone Demetrio Donaldson MD Primary Care Physician [phone] Conditions or Problems Problem Name Problem Code Onset Date Status Entry Date Provider Comment Standard Description Annotate Hot flashes 931936094 (SNOMED CT) Active Anjum Blair MD Menopausal flushing Vitamin B12 deficiency 272016701 (SNOMED CT) Active Anjum Blair MD Cobalamin deficiency Body aches 26440619 (SNOMED CT) Active Anjum Blair MD Generalized aches and pains Fatigue 56477838 (SNOMED CT) Active Anjum Blair MD Fatigue Medications Medication Instructions Start Date Stop Date Generic Name [facility] Provider VITAMIN B-12 1000 MCG TABS TAKE 1 TABLET BY MOUTH ONCE A DAY 9 CYANOCOBALAMIN [id number] Anjum Blair MD Medications Administered No information [...] in Blood ABS NEUTROPH 3737 CELLS/UL 10*3/uL 3407-9508 N Neutrophils [#/volume] in Blood MPV 10.8 [...] [facility]-[id number] Medication Reconciliation [facility]-[id number] Medication Reconciliation 39431 [facility] Test # CMP 5 58551 [facility] Test # TSH reflex to free [...]
[2025-03-08] MEDS: BELLADONNA ALKALOIDS 60 ML ML PO (06:31)
[2025-03-08] MEDS: ASPIRIN 81MG CHEWABLE TABLET 324 MG PO (06:31)
[2025-03-08] MEDS: ACETAMINOPHEN 500MG TAB 1000 MG PO (06:31)
[2025-03-08 06:33] LABS: Hematocrit 40.8 % (37.0-47.0); Hemoglobin 13.3 g/dL (12.2-16.2); Immature Granulocytes % 0.2 %; Mean Corpuscular HGB Conc 32.6 g/dL (31.8-35.4); Mean Corpuscular Hemoglobin 29.1 pg (27.0-31.2); Mean Corpuscular Volume 89.3 fl (81-99); Nucleated Red Blood Cells % 0 %; Platelet Count 187 K/mm3 (142-424); Red Blood Count 4.57 M/mm3 (4.20-5.40); Red Cell Distribution Width-SD 42.3 fL; White Blood Count 6.1 K/mm3 (4.8-10.8)
[2025-03-08 06:38] LABS: Albumin Level 3.5 g/dl (3.5-5.0); Chloride 109 mmol/L (98-107); Sodium 140 mmol/L (136-145)
[2025-03-08 06:39] LABS: Potassium 4.4 mmoL/L (3.5-5.1)
[2025-03-08 06:41] LABS: Alanine Aminotransferase 22 U/L (12-78); Albumin/Globulin Ratio 0.8 (1.1-1.8); Alkaline Phosphatase 100 U/L (38-126); Anion Gap 10.4 mEq/L (5-15); Aspartate Amino Transferase 28 U/L (14-36); Blood Urea Nitrogen 16 mg/dl (7-17); Carbon Dioxide 25 mmol/L (22.0-30.0); Creatinine Clearance Estimated 177 mL/min (50-200); Creatinine,Serum 0.50 mg/dl (0.52-1.04); Estimated Glomerular Filt Rate 135 ml/min (>60); GFR (African American) 163 ML/MIN (>60); Globulin 4.2 g/dL (1.3-3.2); Total Protein,Serum 7.7 g/dl (6.3-8.2)
[2025-03-08 06:42] LABS: Calcium 8.9 mg/dl (8.4-10.2); Glucose 108 mg/dl (74-100)
[2025-03-08 06:50] LABS: Bilirubin,Total 0.1 mg/dl (0.2-1.3)
[2025-03-08 06:53] LABS: HCG Qualitative, Serum Negative (Negative); Troponin I < 0.01 ng/ml (0.00-0.034)
[2025-03-08 07:11] LABS: D-Dimer 0.66 ug/mL (0.0-0.5)
[2025-03-08 09:59] LABS: Troponin I < 0.01 ng/ml (0.00-0.034)
== END 2025-03-08 10:20 | disposition home or self-care (01) ==
PROVIDERS: Emergency Provider Emergency Medicine
DX: R07.89 Other chest pain (principal); R06.02 Shortness of breath
CPT/HCPCS: 71045; 80053; 84484; 84703; 85025; 85378; 93005; 99285

== ENCOUNTER 2025-04-11 07:36 | Outpatient (CLI) | payer MEDICAID, SELFPAY ==
--- OUTSIDE RECORDS SUMMARY | 2025-04-11 07:38 | XMS_ITS | Clinical Summary ---
Author Organization [facility] Address [address] [place] [id number] Phone Care Team Providers Care At Home Independent Call Center Agent Name Role Phone Demetrio Donaldson MD Primary Care Physician [phone] Conditions or Problems Problem Name Problem Code Onset Date Status Entry Date Provider Comment Standard Description Annotate Hot flashes 404790714 (SNOMED CT) Active Anjum Blair MD Menopausal flushing Vitamin B12 deficiency 995289959 (SNOMED CT) Active Anjum Blair MD Cobalamin deficiency Body aches 26450094 (SNOMED CT) Active Anjum Blair MD Generalized aches and pains Fatigue 45287743 (SNOMED CT) Active Anjum Blair MD Fatigue Medications Medication Instructions Start Date Stop Date Generic Name [facility] Provider VITAMIN B-12 1000 MCG TABS TAKE 1 TABLET BY MOUTH ONCE A DAY 9 CYANOCOBALAMIN [id number] Anjum Blair MD Medications Administered No information [...] Rheumatoid factor [Units/volume] in Serum or Plasma SYK HOMO PAT NEGATIVE NEGATIVE N SKY (a [...] in Blood ABS NEUTROPH 3737 CELLS/UL 10*3/uL 6532-0353 N Neutrophils [#/volume] in Blood MPV 10.8 [...] Procedures Code Procedure Name Date Entry Date [facility]-[id number] Medication Reconciliation [facility]-[id number] Medication Reconciliation 59971 [facility] Test # CMP 5 [id number] [facility] Test # TSH reflex to free [...]
[2025-04-11 07:55] VITALS: BMI 30.1
[2025-04-11 08:20] VITALS: BP 120/71; PULSE 69; RESP 18; TEMP 36.3; O2SAT 99
[2025-04-11 08:28] LABS: Anion Gap 9.8 mEq/L (5-15); Blood Urea Nitrogen 12 mg/dl (7-17); Calcium 8.3 mg/dl (8.4-10.2); Carbon Dioxide 25 mmol/L (22.0-30.0); Chloride 105 mmol/L (98-107); Creatinine Clearance Estimated 146 mL/min (50-200); Creatinine,Serum 0.60 mg/dl (0.52-1.04); Estimated Glomerular Filt Rate 109 ml/min (>60); GFR (African American) 131 ML/MIN (>60); Glucose 111 mg/dl (74-100); Potassium 3.8 mmoL/L (3.5-5.1); Sodium 136 mmol/L (136-145)
[2025-04-11] MEDS: IVABRADINE HCL 7.5MG TABLET PO (08:29)
[2025-04-11] MEDS: METOPROLOL TARTRATE 50MG TABLET PO (08:30)
--- NOTE | 2025-04-11 08:30 | CT_ITS ---
APPROVED REPORT Angiography Technologist: CLINICAL INDICATION Chest Pain TECHNIQUE Image Acquisition: A 128 slice MDCT scanner ([employer] View) was used for data acquisition. A noncontrast coronary calcium scan was performed. A CT attenuation threshold of 130 Hounsfield units (HU) was used for the detection of calcium in contiguous voxels of 1 sq mm in area to be counted as individual lesions. Bolus tracking in the ascending aorta with a threshold of 180 HU was performed. Immediately afterwards, ECG synchronized cardiac CT was then performed from the cardiac base to apex using retrospective gating with ECG tube current modulation. A total of 85 mL of Isovue 370 mg/mL contrast medium was administered at 5 mL/sec followed by a saline flush using a biphasic injection protocol. A tube voltage of 120 KVp was used. The average heart rate at the time of acquisition was 62 bpm and regular. Image Reconstruction Transaxial images were reconstructed at 0.67 mm slide thickness. Data was reviewed interactively on an advanced workstation capable of 2 and 3-dimensional displays in all conventional reconstruction formats, including multiplanar reformations, maximum intensity projections, curved multiplanar reformations, and volume rendered reconstructions. When applicable, selected routine images describing the relevant coronary anatomy and pathology were saved and sent to PACS. Complications None Technical Quality Overall image quality was fair. Coronary artery opacification was adequate. Total DLP (Dose-Length Product) is 2180.0 mGy-cm. The reported value represents the total of one or more individual components during the CT acquisition of this date and at this time, and as such, the same value may appear in more than one CT report depending on the interpreting/reporting physicians. COMPARISON None FINDINGS CT Coronary Calcium Scoring LMA (Left Main Artery) = 0 LAD (Left Anterior Descending) = 0 LCX (Left Coronary Circumflex) = 0 RCA (Right Coronary Artery) = 0 Total Calcium Score = 0 using the AJ-130 method. The interpretation of the calcium heart score is based on the following continuum*: 0 = no calcified plaque detected (risk of coronary artery disease is very low ??? less than 5%) 1-10 = calcium detected in extremely minimal levels (risk of coronary diseases is still low ??? less than 10%) 11-100 = mild levels of plaque detected with certainty (mild or minimal narrowing of heart arteries is likely) 101-400 = definite,at least moderate levels of plaque detected (relatively high risk of a heart attack within 3-5 years) >401-999 = extensive levels of plaque detected (high risk of heart attack, high levels of vascular disease are present, high likelihood of at least one significant coronary narrowing) *The calcium heart score quantifies the burden of coronary calcification/plaque in the coronary arteries. The calcium heart score is not able to evaluate the presence or burden of non-calcified (i.e. soft) plaque. There is no identifiable calcification in the aortic valve, mitral annulus or mitral valve, pericardium, or myocardium. Coronary CT Angiography The coronary arterial system is right dominant. Quantitative Stenosis Grading: Left Main (LM): The left main originates normally from the left sinus of Valsalva. The LM trifurcates into the left anterior descending artery, ramus intermedius, and left circumflex artery. The LM is patent with no evidence of atherosclerosis. Left Anterior Descending (LAD) and Diagonal Branches: The LAD gives off 3 diagonal branch(es). The LAD and its branches are patent with no evidence of atherosclerosis. There is no evidence of LAD-myocardial bridge. Ramus-intermedius (RI): The RI is patent. Left Circumflex (LCX) and Obtuse Marginals (OM): The LCX gives off 1 Obtuse Marginal (OM) branch(es). The LCX and its branches are patent with no evidence of atherosclerosis. Right Coronary Artery (RCA): The RCA originates normally from the right sinus of Valsalva. The RCA gives off a posterior descending artery (PDA) and posterolateral (PL) branches. The RCA and its branches are patent with no evidence of atherosclerosis. Non-Coronary Cardiac Findings: Analysis of the left ventricular (LV) structure and function was performed after 3-D reconstruction of the LV from axial images, with user-corrected automatic contouring for assessment of LV volumes and user-defined reconstruction from oblique planes for measurement of 3-D cardiac structure and function. -The left ventricle systolic function is normal. -There is no left atrial appendage filling defect. Two right pulmonary veins and two left pulmonary veins drain normally into the left atrium. -No pericardial thickening or calcification. -Central and branch pulmonary arteries in the [id number] are unremarkable. -Thoracic aorta within the visualized thoracic aortic-branches in the [id number]-[id number] is unremarkable. Extracardiac Structures No significant extra-cardiac findings. Note, however, that this study is focused on the cardiac findings. IMPRESSION -Absence of coronary calcification with an Agatston score = 0 using the AJ-130 method. -No evidence of significant flow-limiting atherosclerosis of the coronary arteries. -No evidence of coronary anomalies or myocardial bridges. -CAD-RADS 0. Management recommendations per ACC/AHA guidelines*, as clinically appropriate. *Recommendations: CAD RADS 0: Reassurance. Consider non-atherosclerotic causes of chest pain. CAD RADS 1: Consider non-atherosclerotic causes of chest pain. Consider preventive therapy and risk factor modification. CAD RADS 2: Consider non-atherosclerotic causes of chest pain. Consider preventive therapy and risk factor modification, particularly for patients with nonobstructive plaque in multiple segments. CAD RADS 3: Consider further functional testing. Consider symptom-guided anti-ischemic and preventive pharmacotherapy as well as risk factor modification per published guideline statements. CAD RADS 4A: Consider further functional testing or invasive coronary angiography with revascularization per published guideline statements. Consider symptom-guided anti-ischemic and preventive pharmacotherapy as well as risk factor modification per published guideline statements. CAD RADS 4B: Invasive coronary angiography recommended with revascularization per published guideline statements. Consider symptom-guided anti-ischemic and preventive pharmacotherapy as well as risk factor modification per published guideline statements. CAD RADS 5: Consider invasive angiography and/or viability assessment with revascularization per published guideline statements. Consider symptom-guided anti-ischemic and preventive pharmacotherapy as well as risk factor modification per published guideline statements. CRITICAL RESULT None COMMUNICATION Per this written report The coronary and cardiac findings of this CCTA were reviewed, reported, and signed by Donnie Mendez MD (Dragline Operator) Conclusion Electronically signed by : Lilly Mendez MD 04/11/2025 20:54:42
[2025-04-11 08:32] LABS: HCG Qualitative, Serum Negative (Negative)
[2025-04-11 09:30] VITALS: BP 122/82; PULSE 58; RESP 18; O2SAT 98
[2025-04-11 09:36] VITALS: BP 130/89; PULSE 56; RESP 18; O2SAT 99
[2025-04-11 09:43] VITALS: BP 142/91; PULSE 55; RESP 18; O2SAT 100
[2025-04-11] MEDS: SODIUM CHLORIDE 0.9% 10ML SYR (RAD ONLY) 10 ML IV (09:50)
[2025-04-11] MEDS: IOPAMIDOL-370 (76%);100ML BOTTLE 85 ML IV (09:50)
[2025-04-11] MEDS: 0.9 % SODIUM CHLORIDE 50 ML VIAL IV (09:50)
== END 2025-04-11 09:53 | disposition home or self-care (01) ==
PROVIDERS: PCP Internal Medicine; Visit Provider Internal Medicine
DX: R94.31 Abnormal electrocardiogram [ECG] [EKG] (principal); R06.02 Shortness of breath; R07.9 Chest pain, unspecified; Z82.49 Family history of ischemic heart disease and other diseases of the circulatory system
CPT/HCPCS: 75574; 80048; 84703; Q9967

== ENCOUNTER → 2025-04-13 19:30 | Outpatient (CLI) | payer MEDICAID, SELFPAY ==
--- OUTSIDE RECORDS SUMMARY | 2025-04-13 19:33 | XMS_ITS | Clinical Summary ---
Author Organization [facility] Address [address] [place] [id number] Phone Care Team Providers Care Engine Wiper Name Role Phone Demetrio Donaldson MD Primary Care Physician [phone] Conditions or Problems Problem Name Problem Code Onset Date Status Entry Date Provider Comment Standard Description Annotate Hot flashes 471389543 (SNOMED CT) Active Anjum Blair MD Menopausal flushing Vitamin B12 deficiency 095757330 (SNOMED CT) Active Anjum Blair MD Cobalamin deficiency Body aches 81671149 (SNOMED CT) Active Anjum Blair MD Generalized aches and pains Fatigue 95980271 (SNOMED CT) Active Anjum Blair MD Fatigue Medications Medication Instructions Start Date Stop Date Generic Name [facility] Provider VITAMIN B-12 1000 MCG TABS TAKE 1 TABLET BY MOUTH ONCE A DAY 9 CYANOCOBALAMIN [id number] Anjum Blair MD Medications Administered No information [...] in Blood ABS NEUTROPH 3737 CELLS/UL 10*3/uL 1807-0712 N Neutrophils [#/volume] in Blood MPV 10.8 [...] Code Procedure Name Date Entry Date [facility]-[id number] Medication Reconciliation [facility]-[id number] Medication Reconciliation 75790 [facility] Test # CMP 5 [id number] [facility] Test # TSH reflex to free [...]
== END ==
LOC: SL 19:32
PROVIDERS: PCP Internal Medicine; Visit Provider Specialist
DX: G47.33 Obstructive sleep apnea (adult) (pediatric) (principal); E66.811 Obesity, class 1; G47.61 Periodic limb movement disorder; G47.36 Sleep related hypoventilation in conditions classified elsewhere
CPT/HCPCS: 95810

== ENCOUNTER 2025-05-02 10:00 | Outpatient (RCR) | payer MEDICAID, SELFPAY | END 2025-05-02 23:59 | disposition home or self-care (01) | LOC: OT 10:00 | PROVIDERS: Visit Provider Specialist | DX: G62.9 Polyneuropathy, unspecified (principal); G60.0 Hereditary motor and sensory neuropathy | CPT/HCPCS: 97110; 97140; 97165 ==

== ENCOUNTER 2025-05-09 10:00 | Outpatient (RCR) | payer MEDICAID, SELFPAY | END 2025-05-09 23:59 | disposition home or self-care (01) | LOC: OT 10:00 | PROVIDERS: PCP Internal Medicine; Visit Provider Specialist | DX: G60.0 Hereditary motor and sensory neuropathy (principal) | CPT/HCPCS: 97110; 97140 ==

== ENCOUNTER 2025-06-18 20:29 | Emergency (ER) | payer MEDICAID, SELFPAY ==
[2025-06-18 20:31] VITALS: BP 155/84; PULSE 94; RESP 18; TEMP 36.9; O2SAT 99; BMI 31.1
--- OUTSIDE RECORDS SUMMARY | 2025-06-18 20:58 | XMS_ITS ---
Author Organization Unknown ENCOUNTERS Encounter Performer Location Date Diagnosis Diagnosis Status Pre Admit [place] [address] [place] [address] [id number] Emergency [address] [place] [address] [id number] Emergency [address] [place] [place] [address] [id number] ADONAY Pre Admit [address] [place] [address] [id number] Pre Admit [address] [place] [address] [id number] Emergency [address] [place] [id number] ADONAY *Note: Encounters from your own facility or health system may be excluded. Allergies, Adverse Reactions, Alerts Allergen Type Severity Identification Date hydrocodone drug allergy 3 [id number] duloxetine drug allergy 2 96345558 vancomycin drug allergy 1 36997501 gabapentin drug allergy 3 [id number] Medications Name Date Quantity Days Supplied GPI Number
--- NOTE | 2025-06-18 21:02 | CT_ITS ---
PROCEDURE INFORMATION: Exam: CT Neck With Contrast Exam date and time: 06/18/2025 9:41 PM Age: 45 years old Clinical indication: Pain; Other: Tenderness R jaw; Additional info: Trismus, right sided restriction, tenderness R jaw TECHNIQUE: Imaging protocol: Computed tomography of the neck with contrast. Radiation optimization: All CT scans at this facility use at least one of these dose optimization techniques: automated exposure control; mA and/or kV adjustment per patient size (includes targeted exams where dose is matched to clinical indication); or iterative reconstruction. Contrast material: ISOVUE; Contrast volume: 75 ml; Contrast route: IV; COMPARISON: CT SOFT TISSUE NECK W CON 06/18/2025 9:41 PM FINDINGS: Salivary glands: Normal. Glands are normal in size. Teeth: Poor dentition with multiple dental caries and periapical abscesses described in the CT facial bone study. Pharynx: Unremarkable. No significant tonsillar enlargement. Larynx: Unremarkable. Epiglottis is normal. Thyroid: Normal. No enlarged or calcified nodules. Trachea: Visualized trachea is unremarkable. Lungs: Unremarkable as visualized. Lymph nodes: Reactive jugulodigastric and right internal jugular chain lymph nodes image 4/43-53. Bones/joints: Low-density lesion with rim enhancement in the wallpaper installer space in the temporalis muscle medial to the right mandible measuring 2 cm image 7/163-175 and 5/44 with swelling of the temporalis muscle and effacement of the adjacent fat plane. Soft tissues: See Bones/joints finding. IMPRESSION: 1. Low-density lesion with rim enhancement in the wallpaper installer space in the temporalis muscle medial to the right mandible measuring 2 cm image 7/163-175 and 5/44 with swelling of the temporalis muscle and effacement of the adjacent fat plane. Findings consistent with abscess. 2. Reactive jugulodigastric and right internal jugular chain lymph nodes image 4/43-53. 3. Poor dentition with multiple dental caries and periapical abscesses described in the CT facial bone study.
--- NOTE | 2025-06-18 21:13 | CT_ITS ---
PROCEDURE INFORMATION: Exam: CT Maxillofacial With Contrast Exam date and time: 06/18/2025 9:41 PM Age: 45 years old Clinical indication: Jaw pain; Additional info: Eval for osteo and dental abscesses TECHNIQUE: Imaging protocol: Computed tomography of the face with contrast. Radiation optimization: All CT scans at this facility use at least one of these dose optimization techniques: automated exposure control; mA and/or kV adjustment per patient size (includes targeted exams where dose is matched to clinical indication); or iterative reconstruction. Contrast material: ISOVUE; Contrast volume: 75 ml; Contrast route: IV; COMPARISON: CT FACIAL BONES W CON 06/18/2025 9:41 PM FINDINGS: Paranasal sinuses: No air-fluid levels. Orbital cavities: Orbits are normal. Globes are unremarkable. Teeth: Poor dentition with multiple dental caries including multiple right mandibular teeth sagittal image 1002/75 with periapical lucency image 1002/68; involving right mandibular tooth 32 consistent with periapical abscess. Periapical lucency maxillary incisor image 1002/99 consistent with periapical abscess. Left mandibular tooth number 32 with periapical lucency consistent with periapical abscess image 1002/132. Bones: Low-density lesion with rim enhancement in the weight control engineer space in the temporalis muscle medial to the right mandible measuring 2 cm image 7/163-175 and 5/44 with swelling of the temporalis muscle and effacement of the adjacent fat plane. Soft tissues: See Bones finding. Other findings: . IMPRESSION: 1. Low-density lesion with rim enhancement in the right weight control engineer space in the temporalis muscle medial to the right mandible measuring 2 cm image 7/163-175 and 5/44 with swelling of the temporalis muscle and effacement of the adjacent fat plane. Findings consistent with an abscess. 2. Poor dentition with multiple dental caries including multiple right mandibular teeth sagittal image 1002/75 with periapical lucency image 1002/68; involving right mandibular tooth 32 consistent with periapical abscess. 3. Periapical lucency maxillary incisor image 1002/99 consistent with periapical abscess. 4. Left mandibular tooth number 32 with periapical lucency consistent with periapical abscess image 1002/132.
[2025-06-18] MEDS: KETOROLAC 15MG/ML VIAL 15 MG IV (21:15)
[2025-06-18] MEDS: ONDANSETRON 4MG/2ML VIAL 4 MG IV (21:15)
[2025-06-18] MEDS: MORPHINE 4MG/ML SYRINGE 4 MG IV (21:15)
[2025-06-18 21:20] VITALS: BP 112/73; PULSE 88; RESP 16; O2SAT 99
[2025-06-18 21:40] LABS: Chloride 98 mmol/L (98-107); Sodium 134 mmol/L (136-145)
[2025-06-18 21:41] LABS: Potassium 3.8 mmoL/L (3.5-5.1)
[2025-06-18 21:44] LABS: Anion Gap 11.8 mEq/L (5-15); Blood Urea Nitrogen 7 mg/dl (7-17); Calcium 8.6 mg/dl (8.4-10.2); Carbon Dioxide 28 mmol/L (22.0-30.0); Creatinine Clearance Estimated 175 mL/min (50-200); Creatinine,Serum 0.50 mg/dl (0.52-1.04); Estimated Glomerular Filt Rate 134 ml/min (>60); GFR (African American) 162 ML/MIN (>60); Glucose 100 mg/dl (74-100)
[2025-06-18 21:45] LABS: Hematocrit 37.8 % (37.0-47.0); Hemoglobin 12.5 g/dL (12.2-16.2); Immature Granulocytes % 0.3 %; Mean Corpuscular HGB Conc 33.1 g/dL (31.8-35.4); Mean Corpuscular Hemoglobin 28.8 pg (27.0-31.2); Mean Corpuscular Volume 87.1 fl (81-99); Nucleated Red Blood Cells % 0 %; Platelet Count 200 K/mm3 (142-424); Red Blood Count 4.34 M/mm3 (4.20-5.40); Red Cell Distribution Width-SD 41.5 fL; White Blood Count 9.2 K/mm3 (4.8-10.8)
[2025-06-18] MEDS: SODIUM CHLORIDE 0.9% 10ML SYR (RAD ONLY) 10 ML IV (21:47)
[2025-06-18] MEDS: IOPAMIDOL-370 (76%);100ML BOTTLE 75 ML IV (21:47)
--- NOTE | 2025-06-18 21:54 | HMH.EDGENADL ---
Discharge Plan Disposition Patient Disposition: Xfer Other Condition: Good Prescriptions Prescriptions: No Action diclofenac sodium 50 mg tablet,delayed release (DR/EC) 50 mg PO BID Qty: 60 1RF Referrals Follow up/Referrals: Bonilla Thompson DO [Primary Care Provider, Family Practice] - See instructions Activity Restrictions/Add. Instructions Additional Instructions/Restrictions: Please present to the [facility] Emergency Department for further evaluation. Clinical Impressions Clinical Impression: Abscess of infectious waste technician space of mouth, Abscess, periapical Stand Alone Forms Stand Alone Forms: Transfer Record - ED Print Language Print Language: Ghanaian Discharge ED Provider: Ferny Chavis General Adult HPI General Chief complaint: PAIN Stated complaint: painful mouth,ears,headache Time Seen by Provider: 06/18/25 20:41 Mode of Arrival: Ambulatory Source of Information: Patient and Relative Description of Symptoms (Recalled from ER Triage Doc. by RN): patient presents to ED for right sided TMJ pain. maxime was diagnosed year ago and the TMJ pain Comes and goes . she currently rates it 05/13 and radiated into her right ear. she took some tylenol and muscle relaxers at home. History of Present Illness HPI narrative: This is a 45-year-old female patient, with past medical history of Wmaesgf-Ecejt-Njuwz disorder and temporomandibular joint dysfunction, who is presenting to the emergency department today for evaluation of trismus and right-sided jaw pain. Patient states that she saw her primary care provider couple weeks ago and was diagnosed with temporomandibular joint dysfunction. She states that since that time she has had worsening trismus and is only able to mildly open her mouth without exquisite pain and restriction of range of motion. She has no neck stiffness. She also reports tenderness over the gumline of the mandible and the maxilla. Related Data Previous Rx's ?Medication ?Instructions ?Recorded diclofenac sodium 50 mg 50 mg PO BID pain #60 tabs 04/13/25 tablet,delayed release Allergies Allergy/AdvReac Type Severity Reaction Status Date / Time gabapentin Allergy Intermediate Rash Verified 05/02/25 14:17 hydrocodone AdvReac Intermediate Vomiting Verified 05/02/25 14:17 duloxetine AdvReac Mild Vomiting Verified 05/02/25 14:17 vancomycin AdvReac Rash Verified 05/02/25 14:17 [facility] Disclaimer: The information contained in this section may have been updated after the patient was seen, as this information can be updated by other users. Medical History Chest pain Family history of ischemic heart disease before age 50 Abnormal Holter exam Abnormal electrocardiogram [ECG] [EKG] Shortness of breath Sleep-disordered breathing Snoring Neuropathy Family history of Rbhjtmt-Aqsyl-Aqalt disease Asthma Surgical History History of colposcopy Hx of tubal ligation Family History Other Nfvibah-Tripi-Sjjlb disease Coronary artery disease Heart attack Social History Smoking Status: Never smoker alcohol intake: never substance use type: denies use current occupational status: unemployed Travel in the last 8 weeks?: None marital status: Have you lived/traveled outside [place] in past 30 days?: No Contact w/someone who lives/traveled outside US past 30 days?: No Exposure to someone with infectious disease in past 14 days?: No Do you have a fever (greater than 100.4 F or 38 C)?: No Have you tested positive for COVID-19?: No Exposed to someone with COVID-19 in past 14 days?: No Do you have a sore throat?: No Do you have a cough?: No Do you have any weakness?: No Do you have any diarrhea?: No Are you experiencing any unusual bleeding?: No Do you have any muscle aches/pain?: No Do you have any abdominal pain?: No Are you experiencing loss of taste or smell?: No Other Medical History Have you received the Flu Vaccine for this season: No Have you received the Pneumonia Vaccine: No ROS Obtained: Yes Systems reviewed as appropriate & no additional complaints except as documented Physical Exam General General appearance: other (See MDM) Respiratory Respiratory exam: Present other (See MDM) Cardiovascular Cardiovascular exam: Present other (See MDM) Neurological Exam Neurological exam: Present other (See MDM) Medical Decision Making Medical Records Medical records reviewed: Yes I reviewed the patient's medical records. Screening: Per USPSTF and CDC recommendations, given the prevalence of disease in our region, it is our hospital?s policy to screen for HIV and viral Hepatitis for all patients aged 18 and over and those with ongoing risk factors. Elliot Inquiry Pt receiving controlled substance: No Elliot was queried for this patient: No Vital Signs: 06/18/25 20:31 06/18/25 21:20 Temperature 98.5 F Temperature Source Temporal Artery Scan Pulse Rate 88 Pulse Rate [Right Radial] 94 H Respiratory Rate 18 16 Blood Pressure 112/73 Blood Pressure [Right Arm] 155/84 H Blood Pressure Mean [Right Arm] 107 Blood Pressure Source Automatic Cuff Blood Pressure Source [Right Arm] Automatic Cuff Blood Pressure Position Sitting Blood Pressure Position [Right Arm] Sitting 02 Sat by Pulse Oximetry 99 99 Oxygen Delivery Method Room Air Room Air Lab Data Lab Results 06/18/25 21:14: WBC 9.2, RBC 4.34, Hgb 12.5, Hct 37.8, MCV 87.1, MCH 28.8, MCHC 33.1, RDW 13.1, Plt Count 200, MPV 12.6 H, Neut % (Auto) 78.9, Lymph % (Auto) 12.2, Atlantic % (Auto) 6.9, Eos % (Auto) 1.5, Baso % (Auto) 0.2, Neut # (Auto) 7.3, Lymph # (Auto) 1.1, Atlantic # (Auto) 0.6, Eos # (Auto) 0.1, Baso # (Auto) 0.0, ESR 24 H, Sodium 134 L, Potassium 3.8, Chloride 98, Carbon Dioxide 28, Anion Gap 11.8, BUN 7, Creatinine 0.50 L, Estimated Creat Clear 175, Estimated GFR 134, Est GFR ( Amer) 162, Glucose 100, Calcium 8.6, C-Reactive Protein 85.8 H 06/18/25 21:14 06/18/25 21:14 Orders (Tests/Meds): ED MEDICATIONS Generic Name Dose Route Start Last Admin Trade Name Freq PRN Reason Stop Dose Admin Sodium Chloride 10 ml 06/18/25 21:46 06/18/25 21:47 Sodium Chloride 0.9% 10ml Syr (Rad Only) IV 07/18/25 21:45 10 ml NEEDED PRN Administration Maintain IV Site Discontinued Medications Generic Name Dose Route Start Last Admin Trade Name Freq PRN Reason Stop Dose Admin Ampicillin Sodium/Sulbactam 100 mls @ 200 mls/hr 06/18/25 23:15 06/18/25 23:16 Sodium 3 gm/ Sodium Chloride IV 06/18/25 23:16 200 mls/hr ONCE ONE Administration Iopamidol 75 ml 06/18/25 21:46 06/18/25 21:47 Iopamidol-370 (76%);100ml Bottle IV 06/18/25 21:47 75 ml ONCE ONE Administration Ketorolac Tromethamine 15 mg 06/18/25 21:03 06/18/25 21:15 Ketorolac 15mg/Ml Vial IV 06/18/25 21:04 15 mg ONCE ONE Administration Morphine Sulfate 4 mg 06/18/25 21:03 06/18/25 21:15 Morphine 4mg/Ml Syringe IV 06/18/25 21:04 4 mg ONCE ONE Administration Ondansetron HCl 4 mg 06/18/25 21:03 06/18/25 21:15 Ondansetron 4mg/2ml Vial IV 06/18/25 21:04 4 mg ONCE ONE Administration ORDERS Category Date Time Status CT facial bones w con Stat Cat Scan 06/18/25 21:[address] soft tissue neck w con Stat Cat Scan 06/18/25 21:02 Completed BMP [Basic Metabolic Panel] Stat Lab 06/18/25 21:14 Completed CBC w/Auto Diff [Complete Blood Count Auto Diff] Stat Lab 06/18/25 21:14 Completed CRP [C-Reactive Protein] Stat Lab 06/18/25 21:14 Completed ESR [Erythrocyte Sedimentation Rate] Stat Lab 06/18/25 21:14 Completed Medical Decision Narrative: In summary this is a 45-year-old female patient who is presenting to the emergency department today for evaluation of trismus and right-sided mandibular maxillary pain. Her comorbidities include Tojybwa-Eoldn-Myoyc disease as well as temporomandibular joint dysfunction. On initial evaluation of the patient they were resting comfortably in no acute distress and nontoxic in appearance. They are hemodynamically stable, saturating well room air, and are neurologically intact. On physical examination the patient has trismus. I have attempted to examine the patient's mouth. She is unable to open her jaw enough for me to see the posterior soft palate or posterior pharynx. I do not appreciate any overt fluctuance along the gumline but she is diffusely tender along the maxillary and mandibular gumline and this tenderness is quite exquisite in the posterior aspect of the mandibular gumline and tenderness extends superiorly up the mandible near the temporomandibular joint. She has very minimal tenderness on the external surface of the mandible and TMJ. Differential diagnosis includes temporomandibular joint dysfunction, periodontal disease, gingivitis, pericoronitis, odontogenic infection, parapharyngeal abscess, retropharyngeal abscess, peritonsillar abscess, facial abscess, among others Workup was initiated with hematologic labs as well as a CT scan of the face and CT scan of the neck. Labs were personally interpreted by me and demonstrate no evidence of leukocytosis or anemia. She has no significant electrolyte derangements or evidence of acute kidney injury. Her CRP is quite elevated at 85.8 and her ESR is also elevated at 24. A CT scan of the face was personally interpreted by me and demonstrates a rim-enhancing lesion medial to the ramus of the right mandible. Official radiology read is in agreement and states that there is a abscess present measuring 2 cm in the temporalis muscle medial to the right mandible within the right infectious waste technician space. They also note that there is poor dentition with multiple periapical lucencies involving the right mandibular teeth and maxillary incisors. Based on his findings I have treated the patient with 3 g of Unasyn. I have had an interactive discussion with the transfer center at the [facility], namely Dr. Muñoz, who has accepted the patient for transfer to the [facility] as a direct ER to ER transfer. I have strongly urged the patient to take an ambulance down to the [facility] given the location of his abscess. She has refused transport by EMS and would like to transfer herself by privately owned vehicle. At this time she does not have any stridor, tachypnea, or evidence of impending airway compromise. Patient understands risks and benefits of traveling via privately owned vehicle. She left the emergency department for self transport in stable condition Critical Care Critical Care Time Critical Care Time: No
[2025-06-18 22:02] LABS: C-Reactive Protein 85.8 mg/L (0-4)
[2025-06-18] MEDS: AMPICILLIN SODIUM/SULBACTAM 3 GM in 0.9 % SODIUM CHLORIDE 100 ML IV (23:16)
[2025-06-18 23:25] VITALS: BP 104/72; PULSE 89; TEMP 37.4; O2SAT 99
[2025-06-18 23:35] VITALS: BP 104/72; PULSE 89; RESP 16; TEMP 37.4; O2SAT 99
== END 2025-06-19 00:03 | disposition other institution (70) ==
PROVIDERS: Emergency Provider Student in an Organized Health Care Education/Training Program; PCP Internal Medicine
DX: K04.7 Periapical abscess without sinus (principal); K12.2 Cellulitis and abscess of mouth
CPT/HCPCS: 70487; 70491; 80048; 85025; 85651; 86140; 96374; 96375; 99285; J0295; J1885; J2270; J2405; Q9967